=== PATIENT | male | born 1970 | race Caucasian/White ===

== ENCOUNTER 2017-07-05 01:09 | Emergency (ER) | payer SELFPAY ==
--- NOTE | 2017-07-05 01:19 | ER Report ---
History and Physical Time Seen By MD: :18 Hx. of Stated Complaint: Pt woke up with severe back pain HPI/ROS CHIEF COMPLAINT: low back pain HISTORY OF PRESENT ILLNESS: This is a 47 year old male. He is having severe right low back pain. Awoke with the pain. Was normal when he went to bed tonight. He has never had pain this severe in the past. Pain worsens with any movement. No diarrhea or blood in stool or melena. Normal urination. No history of abdominal surgeries. No nausea or vomiting. No known injuries. Allergies: Coded Allergies: No Known Drug Allergies (Unverified , 07/05/17) Home Meds Active Scripts Ketorolac Tromethamine (KETOROLAC TROMETHAMINE) 10 Mg Tab, 10 MG PO Q6H Y for PAIN, #12 TAB 0 Refills Prov:EVERETT CRUZ MD 07/05/17 Cyclobenzaprine Hcl (CYCLOBENZAPRINE HCL) 10 Mg Tablet, 10 MG PO Q8H Y for MUSCLE SPASMS, #20 TAB 0 Refills Prov:EVERETT CRUZ MD 07/05/17 Reviewed Nurses Notes: Yes Constitutional Vital Sign - Last 24 Hours 07/05/17 07/05/17 07/05/17 07/05/17 01:14 01:15 01:15 01:24 Pulse 91 96 Resp 16 B/P (MAP) 130/93 (105) 144/118 (127) 130/93 Pulse Ox 97 98 O2 Delivery Room Air 07/05/17 07/05/17 07/05/17 07/05/17 01:39 01:54 02:24 02:29 Pulse 87 63 71 B/P (MAP) 125/100 (108) Pulse Ox 93 98 96 07/05/17 07/05/17 07/05/17 07/05/17 02:35 02:44 03:00 03:29 Pulse 61 64 B/P (MAP) 121/84 (96) 125/78 (94) Pulse Ox 96 93 07/05/17 07/05/17 07/05/17 07/05/17 03:30 03:44 03:49 04:00 Pulse 75 B/P (MAP) 125/68 (87) 121/79 (93) Pulse Ox 93 95 Physical Exam General Appearance: The patient is alert. Acute distress due to pain. Non- toxic in appearance. Eyes: Pupils are equal, round. No pallor, injection or icterus. ENT: Mucous membranes are moist. Respiratory: Lungs are clear to auscultation. Cardiovascular: Regular rate and rhythm. No murmurs, gallops or rubs. Normal capillary refill. Gastrointestinal: Abdomen is soft and non tender. Nondistended. Normal active bowel sounds. Neurological: Alert and oriented x3. No focal neurologic deficits Skin: Warm and dry. No rashes. Musculoskeletal: Extremities are nontender. No midline tenderness. Pain in lower right lumbar area. DIFFERENTIAL DIAGNOSIS: After history and physical exam, differential diagnosis was considered for flank pain including but not limited to musculoskeletal causes, kidney stone, pyelonephritis, shingles, and intra-abdominal causes such as diverticulitis and appendicitis. Medical Decision Making Data Points Result Diagram: 07/05/17 0148 07/05/17 0148 Laboratory Hematology Test 07/05/17 01:48 Red Blood Count 5.21 M/uL (4.00-5.60) Mean Corpuscular Volume 97.0 fL (80.0-96.0) Mean Corpuscular Hemoglobin 33.5 pg (26.0-33.0) Mean Corpuscular Hemoglobin Concent 34.5 g/dL (32.0-36.0) Red Cell Distribution Width 13.1 % (11.5-14.5) Mean Platelet Volume 7.4 fL (7.2-11.1) Neutrophils (%) (Auto) 69.0 % (39.4-72.5) Lymphocytes (%) (Auto) 21.0 % (17.6-49.6) Monocytes (%) (Auto) 7.4 % (4.1-12.4) Eosinophils (%) (Auto) 1.4 % (0.4-6.7) Basophils (%) (Auto) 1.2 % (0.3-1.4) Nucleated RBC Relative Count (auto) 0.0 /100WBC Neutrophils # (Auto) 5.8 K/uL (2.0-7.4) Lymphocytes # (Auto) 1.8 K/uL (1.3-3.6) Monocytes # (Auto) 0.6 K/uL (0.3-1.0) Eosinophils # (Auto) 0.1 K/uL (0.0-0.5) Basophils # (Auto) 0.1 K/uL (0.0-0.1) Nucleated RBC Absolute Count (auto) 0.00 K/uL Sodium Level 142 mmol/L (137-145) Potassium Level 4.4 mmol/L (3.5-5.0) Chloride Level 103 mmol/L (98-107) Carbon Dioxide Level 22 mmol/L (22-30) Blood Urea Nitrogen 11 mg/dl (9-21) Creatinine 0.80 mg/dl (0.66-1.25) Glomerular Filtration Rate Calc > 60.0 Random Glucose 99 mg/dl (75-110) Lactate 1.3 mmol/L (0.7-2.1) Calcium Level 10.7 mg/dl (8.4-10.2) Total Bilirubin 0.4 mg/dl (0.2-1.3) Aspartate Amino Transf (AST/SGOT) 34 U/L (0-35) Alanine Aminotransferase (ALT/SGPT) 34 U/L (0-56) Alkaline Phosphatase 74 U/L (0-126) Total Protein 8.2 gm/dl (6.3-8.2) Albumin 5.0 g/dl (3.5-5.0) Chemistry Test 07/05/17 01:48 White Blood Count 8.4 k/uL (4.5-11.0) Red Blood Count 5.21 M/uL (4.00-5.60) Hemoglobin 17.5 g/dL (14.0-18.0) Hematocrit 50.6 % (42.0-52.0) Mean Corpuscular Volume 97.0 fL (80.0-96.0) Mean Corpuscular Hemoglobin 33.5 pg (26.0-33.0) Mean Corpuscular Hemoglobin Concent 34.5 g/dL (32.0-36.0) Red Cell Distribution Width 13.1 % (11.5-14.5) Platelet Count 289 K/uL (150-450) Mean Platelet Volume 7.4 fL (7.2-11.1) Neutrophils (%) (Auto) 69.0 % (39.4-72.5) Lymphocytes (%) (Auto) 21.0 % (17.6-49.6) Monocytes (%) (Auto) 7.4 % (4.1-12.4) Eosinophils (%) (Auto) 1.4 % (0.4-6.7) Basophils (%) (Auto) 1.2 % (0.3-1.4) Nucleated RBC Relative Count (auto) 0.0 /100WBC Neutrophils # (Auto) 5.8 K/uL (2.0-7.4) Lymphocytes # (Auto) 1.8 K/uL (1.3-3.6) Monocytes # (Auto) 0.6 K/uL (0.3-1.0) Eosinophils # (Auto) 0.1 K/uL (0.0-0.5) Basophils # (Auto) 0.1 K/uL (0.0-0.1) Nucleated RBC Absolute Count (auto) 0.00 K/uL Glomerular Filtration Rate Calc > 60.0 Lactate 1.3 mmol/L (0.7-2.1) Calcium Level 10.7 mg/dl (8.4-10.2) Total Bilirubin 0.4 mg/dl (0.2-1.3) Aspartate Amino Transf (AST/SGOT) 34 U/L (0-35) Alanine Aminotransferase (ALT/SGPT) 34 U/L (0-56) Alkaline Phosphatase 74 U/L (0-126) Total Protein 8.2 gm/dl (6.3-8.2) Albumin 5.0 g/dl (3.5-5.0) EKG/Imaging Imaging CT of the abdomen and pelvis contrast: Indication: Right lower back and abdominal pain. Technique: Helical CT was performed through the abdomen and pelvis following IV contrast enhancement with 75 cc of Isovue-370. Multiplanar reconstructions are reviewed. One of the following dose optimization techniques was utilized in the performance of this exam: Automated exposure control; adjustment of the mA and/ or kV according to the patient's size; or use of an iterative reconstruction technique. Specific details can be referenced in the facility's radiology CT exam operational policy. Comparison: None. Lower lung davies: No focal parenchymal or pleural abnormality is identified. Liver: Mildly enlarged. The right lobe measures 19.3 cm. No focal liver lesions are identified. There is uniform enhancement of the venous structures. Gallbladder/biliary tree: The gallbladder is normal in size and homogeneous in density. The bile ducts are normal in caliber. Pancreas: Normal in size, shape, and density. Spleen: Normal in size, shape, and density. Adrenal glands: Within normal limits. Kidneys/urinary bladder: The kidneys are normal in size, shape, and density. There are no signs of urinary tract calculus or obstruction. The urinary bladder is homogeneous and unremarkable. Intestinal structures: A moderate amount of stool is present throughout the colon. There are no signs of intestinal obstruction or focal inflammatory changes. The appendix is unremarkable, as visualized. Pelvis: Unremarkable. Aorta and vascular structures: There is minimal atherosclerotic calcification in the aortic wall. There are no signs of aneurysm. Ascites or fluid collections: None seen. Skeletal structures: There are postoperative changes in the right iliac crest. There are minimal degenerative changes in the spine. No acute skeletal deformity is identified. Impression: No acute process is identified in the abdomen or pelvis. Report Dictated By: Knigston Patterson MD at 07/05/2017 2:38 AM ED Course/Re-evaluation Clinical Indication for ER IV: Hydration, IV Access ED Course Some improvement in pain with Morphine. Labs normal and urinalysis negative. CT scan negative as well. Toradol and Norflex helped with pain. Will treat with Toradol and Flexeril. Decision to Disposition Date: Jul 05, 2017 Decision to Disposition Time: 03:51 Depart Departure Latest Vital Signs Vital Signs Date Time Temp Pulse Resp B/P (MAP) Pulse Ox O2 Delivery O2 Flow Rate FiO2 07/05/17 04:00 121/79 (93) 07/05/17 03:49 75 95 07/05/17 01:15 16 Room Air Impression: Primary Impression: Musculoskeletal back pain Condition: Improved Disposition: HOME OR SELF-CARE New Scripts Ketorolac Tromethamine (KETOROLAC TROMETHAMINE) 10 Mg Tab 10 MG PO Q6H Y for PAIN, #12 TAB 0 Refills Prov: EVERETT CRUZ MD 07/05/17 Cyclobenzaprine Hcl (CYCLOBENZAPRINE HCL) 10 Mg Tablet 10 MG PO Q8H Y for MUSCLE SPASMS, #20 TAB 0 Refills Prov: EVERETT CRUZ MD 07/05/17 Patient Instructions: Musculoskeletal Pain (ED) Additional Instructions: Increase fluid intake. Take Toradol 10mg, one every 6 hours as needed for pain. Take Flexeril 10mg, one every 8 hours as needed for pain as a muscle relaxer. EVERETT CRUZ MD Jul 05, 2017 01:19
[2017-07-05] MEDS ORDERED: NS(*) 0.9% 1000 ML BAG 1,000 ML IV ONE (01:25)
[2017-07-05] MEDS ORDERED: MORPHINE 4 MG/ML SDV IVP ONE (01:25)
[2017-07-05] MEDS ORDERED: ONDANSETRON 4 MG/2 ML VIAL IVP ONE (01:25)
[2017-07-05] MEDS ORDERED: IOPAMIDOL 76% 75 ML INFUS BTL 75 ML ONE (01:36)
[2017-07-05 01:57] LABS: PLATELET COUNT, AUTOMATED 289 K/uL (150-450)
--- NOTE | 2017-07-05 02:51 | RADIOLOGY IMAGING REPORT ---
FACILITY: [facility] PATIENT NAME: Carmine Avelar : 1970 MR: [id number] V: [id number] EXAM DATE: ORDERING PHYSICIAN: EVERETT CRUZ TECHNOLOGIST: Location: [facility] Patient: Carmine Avelar : 1970 Visit/Account:[id number] Date of Sevice: 07/05/2017 CT of the abdomen and pelvis contrast: Indication: Right lower back and abdominal pain. Technique: Helical CT was performed through the abdomen and pelvis following IV contrast enhancement with 75 cc of Isovue-370. Multiplanar reconstructions are reviewed. One of the following dose optimization techniques was utilized in the performance of this exam: Autom ated exposure control; adjustment of the mA and/or kV according to the patient's size; or use of an i terative reconstruction technique. Specific details can be referenced in the facility's radiology C T exam operational policy. Comparison: None. Lower lung davies: No focal parenchymal or pleural abnormality is identified. Liver: Mildly enlarged. The right lobe measures 19.3 cm. No focal liver lesions are identified. There is uniform enhancement of the venous structures. Gallbladder/biliary tree: The gallbladder is normal in size and homogeneous in density. The bile duct s are normal in caliber. Pancreas: Normal in size, shape, and density. Spleen: Normal in size, shape, and density. Adrenal glands: Within normal limits. Kidneys/urinary bladder: The kidneys are normal in size, shape, and density. There are no signs of ur inary tract calculus or obstruction. The urinary bladder is homogeneous and unremarkable. Intestinal structures: A moderate amount of stool is present throughout the colon. There are no signs of intestinal obstruction or focal inflammatory changes. The appendix is unremarkable, as visualized . Pelvis: Unremarkable. Aorta and vascular structures: There is minimal atherosclerotic calcification in the aortic wall. The re are no signs of aneurysm. Ascites or fluid collections: None seen. Skeletal structures: There are postoperative changes in the right iliac crest. There are minimal dege nerative changes in the spine. No acute skeletal deformity is identified. Impression: No acute process is identified in the abdomen or pelvis. Report Dictated By: Kingston Patterson MD at 07/05/2017 2:38 AM Report E-Signed By: Kingston Patterson MD at 07/05/2017 2:46 AM [id number]
[2017-07-05] MEDS ORDERED: ORPHENADRINE 60MG/2ML INJ IVP ONE (03:05)
[2017-07-05] MEDS ORDERED: KETOROLAC 30 MG/ML VIAL IVP ONE (03:05)
[2017-07-05] MEDS ORDERED: KETOROLAC TROM 10 MG TAB TH PO ONE (03:50)
[2017-07-05] MEDS ORDERED: CYCLOBENZAPRINE HCL 10 MG TH PO ONE (03:50)
[2017-07-05] MEDS ORDERED: KET10 PO (03:53)
[2017-07-05] MEDS ORDERED: CYCL10TA29 PO (03:53)
[2017-07-05 04:00] VITALS: BP 121/79
== END 2017-07-05 04:12 | disposition home or self-care (01) ==
LOC: ER 01:20
DX: M54.5 Low back pain (principal)
CPT/HCPCS: 74177; 83605; 85025; 96361; 96374; 96375; 99284; J1885; J2270; J2360; J2405; J7030; Q9967; 82040; 82247; 82310; 82374; 82435; 82565; 82947; 84075; 84132; 84155; 84295; 84450; 84460; 84520